=== PATIENT | female | born 2000 | race Caucasian/White ===

== ENCOUNTER 2018-08-13 13:09 | Emergency (ER) | payer SELFPAY ==
[~2018-08-13] VITALS: Ht 162.6 cm; Wt 95.0 kg
[2018-08-13] MEDS ORDERED: DIAZEPAM 5 MG TABLET PO ONE (15:15)
[2018-08-13] MEDS ORDERED: HYDROCODONE/ACETAMINOPHEN 5/325MG TABLET PO ONE (17:30)
[2018-08-13 17:50] VITALS: BP 143/88
== END 2018-08-13 18:05 | disposition home or self-care (01) ==
LOC: ER 13:09
DX: M54.40 Lumbago with sciatica, unspecified side (principal)
CPT/HCPCS: 72100; 99283